=== PATIENT | female | born 1995 | race Hispanic/Latino ===

== ENCOUNTER 2025-06-10 16:54 | Inpatient (IN) | payer OTHER ==
[2025-06-10 17:20] VITALS: BMI 33.2
[2025-06-10] MEDS ORDERED: hydrALAZINE 20 MG/ML VIAL SLOW IVP PRN (18:03)
[2025-06-10] MEDS ORDERED: Carboprost 250 MCG/ML AMP IM PRN (18:03)
[2025-06-10] MEDS ORDERED: Methylergonovine 0.2 MG/ML VIAL IM PRN (18:03)
[2025-06-10] MEDS ORDERED: Diphenoxylate HCl/Atropine Tablet PO PRN ×2 (18:03)
[2025-06-10] MEDS ORDERED: Lidocaine 1% (PF) 30 ML VIAL SC PRN (18:03)
[2025-06-10] MEDS ORDERED: Ondansetron PF 4 MG/2 ML Vial IVP PRN (18:03)
[2025-06-10] MEDS ORDERED: Acetaminophen 500 MG TAB PO PRN (18:03)
[2025-06-10] MEDS ORDERED: Ibuprofen 800 MG TAB PO PRN (18:03)
[2025-06-10] MEDS ORDERED: Oxytocin 30 units/NS 500 ML 500 ML IV SCH (18:15)
[2025-06-10 18:17] LABS: Hematocrit 37.1 % (34.9-44.5); Hemoglobin 12.7 g/dL (12.0-15.5); Mean Corpuscular Hemoglobin 30.2 pg (27.0-33.0); Mean Corpuscular Volume 88.3 fL (81.6-98.3); Platelet Count 259 10x3/uL (150-450); Red Blood Cell (RBC) Count 4.20 10x6/uL (3.90-5.03); White Blood Cell (WBC) Count 11.17 10x3/uL (3.5-10.5)
[2025-06-10 18:45] LABS: Syphilis Antibody Index 0.02 S/CO (<1.00 Non-Reactive)
[2025-06-10 18:47] LABS: Hep B Surf Ag - L&D Non-Reactive S/CO (NonReactive)
[2025-06-10 20:46] LABS: Glucose 83 mg/dL (70-105)
[2025-06-10 21:12] LABS: HIV (1/2) Antibody/Antigen Non-Reactive (NonReactive); HIV 1/2 INDEX 0.08 S/CO (<1.00)
[2025-06-12] MEDS: Oxytocin 30 units/NS 500 ML 500 ML IV SCH (06:23)
[2025-06-12] MEDS ORDERED: Benzocaine-Menthol 82.5 ML CAN TOP PRN (11:53)
[2025-06-12] MEDS ORDERED: diphenhydrAMINE 25 MG CAP PO PRN (11:53)
[2025-06-12] MEDS ORDERED: Preparation H Ointment 28 GM TUBE PR PRN (11:53)
[2025-06-12] MEDS ORDERED: Methylergonovine 0.2 MG/ML VIAL IM PRN (11:53)
[2025-06-12] MEDS ORDERED: hydrALAZINE 20 MG/ML VIAL SLOW IVP PRN (11:53)
[2025-06-12] MEDS ORDERED: Bisacodyl 10 MG SUPP PR PRN (11:53)
[2025-06-12] MEDS ORDERED: Methylergonovine 0.2 MG TAB PO PRN (11:53)
[2025-06-12] MEDS ORDERED: Milk Of Magnesia 30 ML UDCUP PO PRN (11:53)
[2025-06-12] MEDS ORDERED: Lanolin Ointment 7 GM TUBE TOP PRN (11:53)
[2025-06-12] MEDS ORDERED: Oxytocin 30 units/NS 500 ML 500 ML IV SCH (12:00)
[2025-06-12] MEDS: Lidocaine 1% (PF) 30 ML VIAL ONE (12:15)
[2025-06-12] MEDS: Tranexamic Acid 1,000 MG/10 ML VIAL IVP PRN (12:15)
[2025-06-12] MEDS: Ibuprofen 800 MG TAB PO SCH (14:41)
[2025-06-12] MEDS: Ferrous Sulfate 325 MG TAB PO SCH (16:43)
[2025-06-13 05:14] LABS: #Basophils 0.05 10x3/uL (0.0-0.2); #Eosinophils 0.03 10x3/uL (0.0-0.5); #Monocytes 1.04 10x3/uL (0.0-1.1); #Neutrophils 8.14 10x3/uL (1.5-8.4); %Basophils 0.4 % (0.0-2.0); %Eosinophils 0.3 % (0.0-6.0); %Lymphocytes 21.5 % (18.0-47.0); %Monocytes 8.8 % (0.0-10.0); %Neutrophils 68.5 % (40.0-75.0); Hematocrit 30.4 % (34.9-44.5); Hemoglobin 10.5 g/dL (12.0-15.5); Mean Corpuscular Hemoglobin 31.4 pg (27.0-33.0); Mean Corpuscular Volume 91.0 fL (81.6-98.3); Platelet Count 212 10x3/uL (150-450); Red Blood Cell (RBC) Count 3.34 10x6/uL (3.90-5.03); White Blood Cell (WBC) Count 11.88 10x3/uL (3.5-10.5)
[2025-06-14 07:58] VITALS: BP 124/83; TEMP 98
[2025-06-14] MEDS: Boostrix 0.5 ML (Tdap) VIAL (>/=7 yrs of age) IM ONE (08:00)
== END 2025-06-14 18:50 | disposition home or self-care (01) | DRG 807 ==
LOC: CSHLD/OP 16:54 → CSHLD 18:01 → CSHPP 06-12 14:55
PROVIDERS: ADMIT Student in an Organized Health Care Education/Training Program; ATTEND Student in an Organized Health Care Education/Training Program
PROC: 10E0XZZ Delivery of Products of Conception, External Approach (ICD-10-PCS; principal; 2025-06-12)
PROC: 0HQ9XZZ Repair Perineum Skin, External Approach (ICD-10-PCS; 2025-06-12)
PROC: 0UQMXZZ Repair Vulva, External Approach (ICD-10-PCS; 2025-06-12)
DX: O36.5930 Maternal care for other known or suspected poor fetal growth, third trimester, not applicable or unspecified (principal); Z37.0 Single live birth; O24.420 Gestational diabetes mellitus in childbirth, diet controlled; Z3A.37 37 weeks gestation of pregnancy; Z79.899 Other long term (current) drug therapy; O70.0 First degree perineal laceration during delivery; O71.82 Other specified trauma to perineum and vulva; Z79.84 Long term (current) use of oral hypoglycemic drugs
CPT/HCPCS: 36415; 36416; 59200; 82947; 82951; 85025; 85027; 86780; 86850; 86900; 86901; 87340; 87389; 88307; 99285; J2590; J7120